=== PATIENT | male | born 1985 | race Asian ===

== ENCOUNTER → 2017-06-07 | Outpatient (CLI) | END | disposition home or self-care (01) ==

== ENCOUNTER 2018-09-11 17:46 | Emergency (ER) | payer BC ==
[~2018-09-11] VITALS: Ht 175.3 cm; Wt 86.4 kg
[~2018-09-11 17:46] MED LIST: AZIT250T PO; BENZ-6 PO; PROM5SYR2 PO
[2018-09-11 17:53] VITALS: Ht 175.3 cm; Wt 86.4 kg
--- NOTE | 2018-09-11 18:03 | ERD ---
ER Documentation Chief Complaint Chief Complaint flu like symptoms x1 week HPI 33-year-old male, presents the emergency department, complaining of productive cough, associated with subjective fever and general malaise. The patient works at [employer]. He denies shortness of breath, he has been tr eve ubti-clx-ydkmyau medication without improvement of the symptoms. The patient denies history of asthma or pulmonary disease. ROS All systems reviewed and are negative except as per history of present illness. Medications Home Meds Active Scripts Promethazine HCl/Codeine (Prometh-Codein 6.25-10 mg/5 ml) 5 Ml Syrup, 5 ML PO QHS for 5 Days, #1 BOT Prov:BENNETT OSMAN MD 09/11/18 Albuterol Sulfate* (Proair HFA*) 8.5 Gm Hfa.aer.ad, 2 PUFF INH Q4H PRN for WHEEZING AND SOB, #1 INHALER Prov:BENNETT OSMAN MD 09/11/18 Azithromycin* (Zithromax*) 250 Mg Tablet, 250 MG PO .ZPACK DIRECTED, #6 TAB TAKE 500 MG (2 TABS) THE FIRST DAY THEN 250 MG (1 TAB) DAYS 2-5 Prov:BENNETT OSMAN MD 09/11/18 Amoxicillin* (Amoxicillin*) 500 Mg Cap, 500 MG PO TID for 7 Days, CAP Prov:BENNETT OSMAN MD 09/11/18 Promethazine HCl/Codeine (Prometh-Codein 6.25-10 mg/5 ml) 5 Ml Syrup, 5 ML PO Q8 for cough, #4 OZ Prov:ELISA JOHNS PA-C 04/03/18 Azithromycin* (Zithromax*) 250 Mg Tablet, 250 MG PO .ZPACK DIRECTED, #6 TAB TAKE 500 MG (2 TABS) THE FIRST DAY THEN 250 MG (1 TAB) DAYS 2-5 Prov:ELISA JOHNS PA-C 04/03/18 Benzonatate* (Tessalon Perle*) 100 Mg Capsule, 100 MG PO Q8H PRN for COUGH, #30 CAP Prov:ELISA JOHNS PA-C 04/03/18 Allergies Allergies: Coded Allergies: No Known Allergy (Unverified , 09/11/18) PMhx/Soc History of Surgery: Yes (Appendectomy,Left knee ACL) Hx Substance Use: No FmHx Family History: No diabetes, No coronary disease Physical Exam Vitals Vital Signs Date Temp Pulse Resp B/P (MAP) Pulse Ox O2 O2 Flow FiO2 Time Delivery Rate 09/11/18 79 20 96 21 18:25 09/11/18 97.9 78 20 137/102 98 17:53 (114) Physical Exam Const: No acute distress Head: Atraumatic Eyes: Normal Conjunctiva ENT: Normal External Ears, Nose and Mouth. Neck: Full range of motion. No meningismus. Resp: Rhonchi to auscultation bilaterally Cardio: Regular rate and rhythm, no murmurs Abd: Soft, non tender, non distended. Normal bowel sounds Skin: No petechiae or rashes Back: No midline or flank tenderness Ext: No cyanosis, or edema Neur: Awake and alert Psych: Normal Mood and Affect Results 24 hrs Current Medications Medications Dose Sig/Macarena Start Time Status Last (Trade) Ordered Route PRN Stop Time Admin Dose Reason Admin Albuterol 5 mg ONCE STAT 09/11/18 DC 09/11/18 (Proventil HHN 18:08 09/11/18 18:23 0.083% (Neb)) 18:13 Ipratropium 0.5 mg ONCE ONCE 09/11/18 DC 09/11/18 [place] INH 18:30 09/11/18 18:23 (Atrovent 18:31 0.02% (Neb)) Procedures/MDM At the time of discharge, patient with nontoxic appearance, vital signs stable, no respiratory distress. Differential diagnosis include but not limited to: upper vs lower respiratory infection bacterial/viral/fungal. Asthma, COPD, pneumonitis, allergies, GERD. Less likely pulmonary embolism, cardiac related or malignancy, but still is a possibility. Physical examination and clinical presentation consistent most likely with viral infection with early superimposed bacterial infection. During the ED course the patient remained stable, no new complaints. Treatment options and clinical impression discussed with the patient who agrees with management. The patient is stable to be treated outpatient and will be discharged home. Some side effects of prescribed medications (headache, rash, nausea, vomiting, diarrhea, interactions with other medications) were reviewed. The patient needs to follow up with the primary care provider in the next 48h. If symptoms persist, worsen or new symptoms develop, then patient should return to the ED immediately. Disclaimer: Inadvertent spelling and grammatical errors are likely due to EHR/dictation software use and do not reflect on the overall quality of patient care. Also, please note that the electronic time recorded on this note does not necessarily reflect the actual time of the patient encounter. Departure Diagnosis: Primary Impression: Cough Additional Impression: Acute bronchitis due to infection Condition: Stable Additional Instructions: Thank you very much for allowing us to participate in your care. Your health and safety is our top priority at [facility]. The evaluation in the emergency department has been done to rule out an acute emergency. Chronic, auz-gtgp-qjyvaolwrgy conditions may have not been evaluated; therefore, you need to follow up with a primary care provider in the next 48h. If symptoms persist, worsen or new symptoms develop, then patient should return to the ED immediately. Call your primary care doctor TOMORROW for an appointment during the next 2-4 days and bring all the information provided. Have prescriptions filled and follow precisely the directions on the label. If the symptoms get worse and your provider is unavailable, return to the Emergency Department immediately. BENNETT OSMAN MD Sep 11, 2018 18:03
[2018-09-11] MEDS ORDERED: ALBUTEROL 0.083% (NEB) 2.5 MG/3 ML AMP HHN STA (18:08)
[2018-09-11] MEDS ORDERED: IPRATROPIUM (NEB) 0.5 MG/2.5 ML AMP INH ONE (18:30)
[2018-09-11] MEDS ORDERED: AMOX500C2 PO (19:28)
[2018-09-11] MEDS ORDERED: AZIT250T PO (19:28)
[2018-09-11] MEDS ORDERED: PROM5SYR2 PO (19:28)
[2018-09-11] MEDS ORDERED: ALBU8.5H8 INH (19:28)
[2018-09-11 19:41] VITALS: BP 145/88; PULSE 77; RESP 18
== END 2018-09-11 19:42 | disposition home or self-care (01) ==
LOC: FTE 17:46
DX: J20.9 Acute bronchitis, unspecified (principal)
CPT/HCPCS: 71046; 94664